=== PATIENT | male | born 1940 | race Caucasian/White ===

== ENCOUNTER 2017-03-10 15:02 | Inpatient (IN) | payer OTHER ==
[~2017-03-10] VITALS: Ht 172.7 cm; Wt 53.2 kg
--- NOTE | 2017-03-10 15:12 | PD ---
HPI Chief Complaint: Lott act Time Seen by Provider: 15:09 Travel History International Travel<30 days: No Contact w/Intl Traveler<30days: No Traveled to known affect area: No History of Present Illness HPI 76 year old male presents under Lott act initiated by [facility]'s office. According to his paperwork, "Cheko has been off of his medication for a few days and cannot see a doctor until Thursday. Cheko has schizophrenia and was starting a verbal argument with the client services director today and was trying to break furniture in the house because he thought people were after him. Cheko is a threat to himself or others in the house if he is not on this medication." History is limited from the patient secondary to him being a poor historian as well as mostly incomprehensible speech. He does make mention [facility] [place] He also seems to have a paranoia of women. No other history is available currently. PFSH Past Medical History Narrative Medical History of schizophrenia per Lott act, other past medical history is unobtainable. Schizophrenia: Yes Social History Alcohol Use: No Tobacco Use: No (unable to obtain) Allergies-Medications (Allergen,Severity, Reaction): Coded Allergies: No Known Allergies (Unverified , 03/10/17) Reported Meds & Prescriptions Reported Meds & Active Scripts Active Reported Benztropine (Benztropine Mesylate) 0.5 Mg Tab 1 Mg PO DAILYAC Risperdal (Risperidone) 4 Mg Tab 4 Mg PO HS Risperdal (Risperidone) 2 Mg Tab 2 Mg PO DAILYAC Review of Systems ROS Limitations: Altered Mental Status, Poor Historian Except as stated in HPI: all other systems reviewed are Neg Physical Exam Exam Limitations: Poor Historian Narrative GENERAL: This is an elderly appearing male who is in no acute distress. He is responding to most commands appropriately. He is a very poor historian. SKIN: Warm and dry. HEAD: Atraumatic. Normocephalic. EYES: Pupils equal and round. No scleral icterus. No injection or drainage. ENT: No nasal bleeding or discharge. Mucous membranes pink and moist. NECK: Trachea midline. No JVD. CARDIOVASCULAR: Regular rate and rhythm. No murmur appreciated. RESPIRATORY: No accessory muscle use. Clear to auscultation. Breath sounds equal bilaterally. GASTROINTESTINAL: Abdomen soft, non-tender, nondistended. Hepatic and splenic margins not palpable. MUSCULOSKELETAL: No obvious deformities. No edema. Normal steady gait. NEUROLOGICAL: Awake and alert. No obvious cranial nerve deficits. Motor grossly within normal limits. Partially incomprehensible speech. PSYCHIATRIC: Appropriate mood. Insight and judgment appear limited. Data Data Last Documented VS Vital Signs Date Time Temp Pulse Resp B/P Pulse Ox O2 Delivery O2 Flow Rate FiO2 03/10/17 15:51 18 03/10/17 15:45 98.7 98 126/76 97 Room Air Orders Complete Blood Count With Diff (03/10/17 15:22) Comprehensive Metabolic Panel (03/10/17 15:22) Urinalysis - C+S If Indicated (03/10/17 15:22) Psych Screen (03/10/17 15:22) Drug Screen, Random Urine (03/10/17 15:22) Alcohol (Ethanol) (03/10/17 15:22) Benztropine (Cogentin) (03/10/17 15:45) Risperidone (Risperdal) (03/10/17 15:45) Labs Laboratory Tests Test 03/10/17 15:30 White Blood Count 12.7 TH/MM3 Red Blood Count 5.06 MIL/MM3 Hemoglobin 15.2 GM/DL Hematocrit 44.3 % Mean Corpuscular Volume 87.6 FL Mean Corpuscular Hemoglobin 30.0 PG Mean Corpuscular Hemoglobin 34.2 % Concent Red Cell Distribution Width 13.3 % Platelet Count 180 TH/MM3 Mean Platelet Volume 8.3 FL Neutrophils (%) (Auto) 88.4 % Lymphocytes (%) (Auto) 5.3 % Monocytes (%) (Auto) 4.4 % Eosinophils (%) (Auto) 0.5 % Basophils (%) (Auto) 1.4 % Neutrophils # (Auto) 11.2 TH/MM3 Lymphocytes # (Auto) 0.7 TH/MM3 Monocytes # (Auto) 0.6 TH/MM3 Eosinophils # (Auto) 0.1 TH/MM3 Basophils # (Auto) 0.2 TH/MM3 CBC Comment AUTO DIFF Differential Comment AUTO DIFF CONFIRMED Platelet Estimate NORMAL Platelet Morphology Comment NORMAL Red Cell Morphology Comment NORMAL Urine Color YELLOW Urine Turbidity CLEAR Urine pH 5.5 Urine Specific [place] 1.025 Urine Protein 30 mg/dL Urine Glucose (UA) NEG mg/dL Urine Ketones NEG mg/dL Urine Occult Blood NEG Urine Nitrite NEG Urine Bilirubin NEG Urine Urobilinogen 2.0 MG/DL Urine Leukocyte Esterase NEG Urine RBC 2 /hpf Urine WBC 2 /hpf Urine Squamous Epithelial <1 /hpf Cells Urine Mucus FEW /lpf Microscopic Urinalysis Comment CULT NOT INDICATED Sodium Level 142 MEQ/L Potassium Level 4.4 MEQ/L Chloride Level 107 MEQ/L Carbon Dioxide Level 27.8 MEQ/L Anion Gap 7 MEQ/L Blood Urea Nitrogen 33 MG/DL Creatinine 1.34 MG/DL Estimat Glomerular Filtration 52 ML/MIN Rate Random Glucose 98 MG/DL Calcium Level 9.4 MG/DL Total Bilirubin 1.0 MG/DL Aspartate Amino Transf 17 U/L (AST/SGOT) Alanine Aminotransferase 15 U/L (ALT/SGPT) Alkaline Phosphatase 61 U/L Total Protein 7.4 GM/DL Albumin 4.3 GM/DL Urine Opiates Screen NEG Urine Barbiturates Screen NEG Urine Amphetamines Screen NEG Urine Benzodiazepines Screen POS Urine Cocaine Screen NEG Urine Cannabinoids Screen NEG Ethyl Alcohol Level LESS THAN 3 MG/DL MDM Medical Decision Making Medical Screen Exam Complete: Yes Emergency Medical Condition: Yes Medical Record Reviewed: Yes Differential Diagnosis Schizophrenia, medication noncompliance, dementia with behavioral disturbance, electrolyte abnormality, closed head injury, acute psychosis Narrative Course This is a 76-year-old male reportedly with a history of schizophrenia who has been noncompliant with his medications over the past several days and today he was verbally and physically aggressive and therefore he was placed under Lott act. Mental health screening discussed with the patient. Psychiatric screen ordered. The charge this was able to get in touch with Bob Valerio and apparently he is prescribed Risperdal 2 mg in the morning, 4 mg in the evening, as well as benztropine 1 mg in the morning. Therefore his morning dose of benztropine and Risperdal have been ordered. The patient is medically cleared for psychiatric disposition. Diagnosis Primary Impression: Medical clearance for psychiatric admission Leonard Esquivel Mar 10, 2017 15:12
[2017-03-10 15:45] VITALS: BP 126/76; PULSE 98; RESP 18; TEMP 98.7; O2SAT 97
[2017-03-10] MEDS ORDERED: risperiDONE 1 MG TAB PO ONE ×2 (15:45→22:45)
[2017-03-10] MEDS ORDERED: BENZTROPINE MESYLATE 1 MG TAB PO ONE (15:45)
[2017-03-10 15:49] LABS: AUTOMATED NEUTROPHIL # 11.2 TH/MM3 (1.8-7.7); BASOPHIL # 0.2 TH/MM3 (0-0.2); BASOPHIL % 1.4 % (0.0-2.0); EOSINOPHIL # 0.1 TH/MM3 (0-0.4); EOSINOPHIL % 0.5 % (0.0-4.0); HEMATOCRIT 44.3 % (39.0-51.0); LYMPH % 5.3 % (9.0-44.0); LYMPHOCYTE # 0.7 TH/MM3 (1.0-4.8); MEAN CELL VOLUME 87.6 FL (80.0-100.0); MEAN CORPUSCULAR HGB CONC 34.2 % (32.0-36.0); MONO % 4.4 % (0.0-8.0); NEUT % 88.4 % (16.0-70.0); PLATELET COUNT 180 TH/MM3 (150-450); RED BLOOD COUNT 5.06 MIL/MM3 (4.50-5.90); RED CELL DISTRIBUTION WIDTH 13.3 % (11.6-17.2); WHITE BLOOD COUNT 12.7 TH/MM3 (4.0-11.0)
[2017-03-10 15:51] LABS: HEMO FLAGS AUTO DIFF
[2017-03-10 15:55] LABS: BLOOD, URINE NEG (NEG); COMMENT (UR) CULT NOT INDICATED; CULTURE IF INDICATED CULT NOT INDICATED; GLUCOSE,URINE NEG (NEG); KETONE, URINE NEG (NEG); MUCUS URINE FEW /lpf (OCC); NITRITE,URINE NEG (NEG); PH, URINE 5.5 (5.0-8.5); SQUAMOUS EPITHELIAL CELL URINE <1 /hpf (0-5); URINE COLOR YELLOW (YELLW/STRAW)
[2017-03-10 16:00] LABS: AMPHETAMINE, URINE NEG (NEG); BARBITURATES, URINE NEG (NEG); COCAINE, URINE NEG (NEG)
[2017-03-10] MEDS ORDERED: RISP2TAB37 PO (16:01)
[2017-03-10] MEDS ORDERED: RISP4TAB41 PO (16:01)
[2017-03-10] MEDS ORDERED: BENZ0.5T PO (16:01)
[2017-03-10 16:08] LABS: ALT (GPT) 15 U/L (12-78); ANION GAP 7 MEQ/L (5-15); AST (GOT) 17 U/L (15-37); BICARBONATE 27.8 MEQ/L (21.0-32.0); BLOOD UREA NITROGEN 33 MG/DL (7-18); CHLORIDE 107 MEQ/L (98-107); GLOMERULAR FILTRATION RATE 52 ML/MIN (>89); POTASSIUM 4.4 MEQ/L (3.5-5.1); SODIUM (NA) 142 MEQ/L (136-145)
[2017-03-10 16:10] LABS: ALKALINE PHOSPHATASE 61 U/L (45-117)
[2017-03-10 16:27] LABS: PLATELET ESTIMATE SMEAR NORMAL (NORMAL); PLATELET MORPHOLOGY NORMAL (NORMAL); SCAN/DIFF AUTO DIFF CONFIRMED
[2017-03-10 18:00] VITALS: BP 122/69; PULSE 115; RESP 18; O2SAT 96
[2017-03-10] MEDS ORDERED: LORazepam 2 MG/ML VIAL IM ONE (18:15)
[2017-03-10 18:48] VITALS: BP 119/75; PULSE 120; RESP 18; TEMP 98.9; O2SAT 96
[2017-03-10 22:12] VITALS: BP 142/74; PULSE 95; RESP 18; TEMP 95.7; O2SAT 94
[2017-03-10] MEDS ORDERED: BENZTROPINE MESYLATE 2 MG TAB PO ONE (22:45)
[2017-03-11 02:04] VITALS: RESP 16
[2017-03-11 06:09] VITALS: BP 147/80; PULSE 100; RESP 16; TEMP 98.2; O2SAT 93
--- NOTE | 2017-03-11 10:12 | PD ---
History of Present Illness Chief Complaint: Psychiatric Symptoms Time Seen by Provider: 10:05 Travel History International Travel<30 Days: No Contact w/Intl Traveler<30days: No Known affected area: No Legal Status Legal Status: Lott Act Lott Act Signed By: Baljinder Lott Act Comment: 2016 @ 1341 History of Present Illness: History of Present Illness HPI 76 year old male presents under Lott act initiated by [facility]'s office. According to his paperwork, "Cheko has been off of his medication for a few days and cannot see a doctor until Thursday. Cheko has schizophrenia and was starting a verbal argument with the sash sticker today and was trying to break furniture in the house because he thought people were after him. Cheko is a threat to himself or others in the house if he is not on this medication." Patient seen. Record reviewed. Telephone call to sash sticker Sheldon Terrazas at [phone]. States he has been medication compliant until one week ago when he ran out of the Risperdal. He began to respond to voices then yesterday he became violent.He will take the patient back once he is stabilized as this is unusual behavior for him. He has been living at this [facility]p x 2 years. Mr. Ventura is awake, alert and oriented male with long hobson martinez. His speech is soft tone and illogical. he talks about Kadeem Hood, the bible, being in the [place] as well as of being in the [facility] x 3 years. . It is difficult to interrupt him and difficult to obtain clinical information. States it is" 2016". He is not oriented to situation. he appears internally preoccupied and is suspicious. He has been in behavioral control here in [place]. PFSH Past Medical History Medical History: Unable to Obtain Diminished Hearing: Yes ([facility]) Schizophrenia: Yes Tetanus Vaccination: Unknown Influenza Vaccination: No ?: Not Past Surgical History Surgical History: Unable to Obtain Psychiatric History Psychiatric History Hx Psychiatric Treatment: SCHIZOPHRENIA History of Inpatient Treatment: Yes ([facility]ible [facility]. ) Guns or firearms in home: No Social History Hx Alcohol Use: No Hx Tobacco Use: No (unable to obtain) Hx Substance Use: No Hx of Substance Use Treatment: No Family Psychiatric History Unable to obtain Allergies-Medications (Allergen,Severity, Reaction): Coded Allergies: No Known Allergies (Unverified , 03/10/17) Reported Meds & Prescriptions Reported Meds & Active Scripts Active Reported Benztropine (Benztropine Mesylate) 0.5 Mg Tab 1 Mg PO DAILYAC Risperdal (Risperidone) 4 Mg Tab 4 Mg PO HS Risperdal (Risperidone) 2 Mg Tab 2 Mg PO DAILYAC Review of Systems ROS Limitations: Clinical Condition, Poor Historian Exam Alert: Yes [place]: Person (ox4) Mood: Calm Affect: Other (variable) Speech: Illogical Eye Contact: Indirect Memory Intact: Comment (unable to tetst) Hallucinations: Auditory (appears internally preocupied.) Delusions: Yes Delusion Type: Other (suspicious) Suicidal: Ideation (negative ) Homicidal: Ideation (negative) Insight/Judgement Non existent/ poor MDM Medical Decision Making Medical Record Reviewed: Yes Assessment/Plan 76 year old male with hx of schizophrenia who present to Ed under a BA after he allegedly became violent at his f usp. The BA reports that he has been out of his medication x 2 1 week with increase in behaviors. At this time the patient meets criteria for inpatient treatment to stabilize symptoms, maintain his safety as well as the safety of others. Orders Complete Blood Count With Diff (03/10/17 15:22) Comprehensive Metabolic Panel (03/10/17 15:22) Urinalysis - C+S If Indicated (03/10/17 15:22) Psych Screen (03/10/17 15:22) Drug Screen, Random Urine (03/10/17 15:22) Alcohol (Ethanol) (03/10/17 15:22) Benztropine (Cogentin) (03/10/17 15:45) Risperidone (Risperdal) (03/10/17 15:45) Lorazepam Inj (Ativan Inj) (03/10/17 18:15) Risperidone (Risperdal) (03/10/17 22:45) Benztropine (Cogentin) (03/10/17 22:45) Diet Regular Basic (03/11/17 Breakfast) Results Vital Signs Date Time Temp Pulse Resp B/P Pulse Ox O2 Delivery O2 Flow Rate FiO2 03/11/17 08:54 100 16 03/11/17 06:09 98.2 100 16 147/80 93 Room Air 03/11/17 02:04 16 Room Air 03/10/17 22:12 95.7 95 18 142/74 94 Room Air 03/10/17 18:48 98.9 120 18 119/75 96 Room Air 03/10/17 18:00 115 18 122/69 96 Room Air 03/10/17 15:51 18 03/10/17 15:45 98.7 98 18 126/76 97 Room Air Laboratory Tests Test 03/10/17 15:30 White Blood Count 12.7 Red Blood Count 5.06 Hemoglobin 15.2 Hematocrit 44.3 Mean Corpuscular Volume 87.6 Mean Corpuscular Hemoglobin 30.0 Mean Corpuscular Hemoglobin 34.2 Concent Red Cell Distribution Width 13.3 Platelet Count 180 Mean Platelet Volume 8.3 Neutrophils (%) (Auto) 88.4 Lymphocytes (%) (Auto) 5.3 Monocytes (%) (Auto) 4.4 Eosinophils (%) (Auto) 0.5 Basophils (%) (Auto) 1.4 Neutrophils # (Auto) 11.2 Lymphocytes # (Auto) 0.7 Monocytes # (Auto) 0.6 Eosinophils # (Auto) 0.1 Basophils # (Auto) 0.2 CBC Comment AUTO DIFF Differential Comment AUTO DIFF CONFIRMED Platelet Estimate NORMAL Platelet Morphology Comment NORMAL Red Cell Morphology Comment NORMAL Urine Color YELLOW Urine Turbidity CLEAR Urine pH 5.5 Urine Specific [place] 1.025 Urine Protein 30 Urine Glucose (UA) NEG Urine Ketones NEG Urine Occult Blood NEG Urine Nitrite NEG Urine Bilirubin NEG Urine Urobilinogen 2.0 Urine Leukocyte Esterase NEG Urine RBC 2 Urine WBC 2 Urine Squamous Epithelial <1 Cells Urine Mucus FEW Microscopic Urinalysis Comment CULT NOT INDICATED Sodium Level 142 Potassium Level 4.4 Chloride Level 107 Carbon Dioxide Level 27.8 Anion Gap 7 Blood Urea Nitrogen 33 Creatinine 1.34 Estimat Glomerular Filtration 52 Rate Random Glucose 98 Calcium Level 9.4 Total Bilirubin 1.0 Aspartate Amino Transf 17 (AST/SGOT) Alanine Aminotransferase 15 (ALT/SGPT) Alkaline Phosphatase 61 Total Protein 7.4 Albumin 4.3 Urine Opiates Screen NEG Urine Barbiturates Screen NEG Urine Amphetamines Screen NEG Urine Benzodiazepines Screen POS Urine Cocaine Screen NEG Urine Cannabinoids Screen NEG Ethyl Alcohol Level LESS THAN 3 Diagnosis Primary Impression: Medical clearance for psychiatric admission Additional Impression: Schizophrenia Admitting Information Admitting Physician Requests: Admit (Dr. 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
[2017-03-11] MEDS ORDERED: ACETAMINOPHEN 325 MG TAB PO PRN (10:30)
[2017-03-11] MEDS ORDERED: ALUMINUM/MAGNESIUM/SIMETH 30 ML CUP PO PRN (10:30)
[2017-03-11] MEDS ORDERED: MAGNESIUM HYDROXIDE SUSP 30 ML CUP PO PRN (10:30)
[2017-03-11 11:00] VITALS: BP 146/86; PULSE 88; RESP 18; TEMP 98.4; O2SAT 98
[2017-03-11] MEDS: BENZTROPINE MESYLATE 1 MG TAB PO SCH (13:00)
[2017-03-11] MEDS: risperiDONE 1 MG TAB PO SCH ×2 (13:15→22:42)
[2017-03-11 18:00] VITALS: BP 135/63; PULSE 81; RESP 17; TEMP 98.1; O2SAT 96
[2017-03-12 06:17] VITALS: BP 117/69; PULSE 99; RESP 19; TEMP 98.7
[2017-03-12] MEDS: risperiDONE 1 MG TAB PO SCH ×2 (08:11→20:56)
[2017-03-12] MEDS: BENZTROPINE MESYLATE 1 MG TAB PO SCH (08:11)
[2017-03-12] MEDS ORDERED: MAGNESIUM HYDROXIDE SUSP 30 ML CUP PO PRN (08:45)
[2017-03-12] MEDS ORDERED: ALUMINUM/MAGNESIUM/SIMETH 30 ML CUP PO PRN (08:45)
[2017-03-12] MEDS ORDERED: hydrOXYzine HCL 50 MG TAB PO PRN (08:45)
[2017-03-12] MEDS ORDERED: ACETAMINOPHEN 325 MG TAB PO PRN (08:45)
[2017-03-12] MEDS: NICOTINE 21 MG/24 HR PATCH T-DERMAL SCH (09:00)
--- NOTE | 2017-03-12 09:31 | HHI.HP ---
Provisional Diagnosis Admission Date Mar 11, 2017 at 10:42 [place] I. 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 Express and informed consent means consent voluntarily given in writing, by a competent person, after sufficient explanation and disclosure of the subject matter involved to enable the person to make a knowing and willful decision without any element of force, fraud, deceit, duress, or other form of constraint or coercion. This person is 18 years of age or older, is not now known to be incompetent to consent to treatment with a guardian advocate, and does not have a health care surrogate or proxy currently making medical treatment decisions. I have found this person to be one of the following: [] Competent to provide express and informed consent, as defined above, for voluntary admission to this facility and is competent to provide express and informed consent for treatment. He/she has the consistent capacity to make well reasoned, willful, and knowing decisions concerning his or her medical or mental health treatment. The person fully and consistently understands the purpose of the admission for examination/placement and is fully capable of personally exercising all rights assured under [place]xxx] Incompetent to provide express and informed consent to voluntary admission , and this is incompetent to provide express and informed consent to treatment. The person must be transferred to involuntary status and a petition for a guardian advocate filed with the Circuit Court. [] Refusing to provide express and informed consent to voluntary admission but is competent to provide express and informed consent for treatment. The person must be discharged or transferred to involuntary status. Form shall be completed within 24 hours of a person's arrival at the receiving facility and filed in the clinical record of each person: 1. Admitted on a voluntary basis 2. Permitted to provide express and informed consent to his/her own treatment 3. Allowed to transfer from involuntary to voluntary status 4. Prior to permitting a person to consent to his or her own treatment after having been previously found incompetent to consent to treatment. History of Present Illness Capacity: Lacks Capacity HPI Patient is a 76-year-old white male who comes here it appears from his half-way under Lott act by the [facility]'s office dated at 1: 47 PM that document reviewed and agreed with essentially states that Cheko has been off his medication for a few days and can not see a doctor until Thursday. Cheko has schizophrenia and was starting a verbal argument with the commercial loan analyst today and was trying to break furniture in the house because he thought people were after him. Cheko is a threat to himself or others in the house if he is not on his medication patient seen screen in the ED urine toxicology positive for benzodiazepines blood alcohol level negative. At the present time patient sitting quietly in his room on [address] medical student Liborio and Counselor Tiffany present throughout session patient is alert though diffusely disoriented to place time and situation. Speech pattern markedly disorganized almost the point of word salad. Though he is pleasant about this. There is some references towards March and the federal government. Per the psych screening notes it appears she is in the long history mental illness has been hospitalized at the [facility] past. It appears there is no significant family members available the need to further research neck. It appears as no significant alcohol or drug history in the past is essentially unknown at this time also. In any event per the med reconciliation patient is on Cogentin and Respinol. We will restart those medications. That this summer feel patient does not have capacity for admission a medications thus I'll do first opinion petition supporting Lott act and ask for healthcare surrogate and guardian advocate. Also the hospitalist assess this gentleman Review of Systems ROS Limitations: Altered Mental Status (unable to ascertain due to patient's cognitive deficits) Past Psych History Psychological trauma history Been able to ascertain due to cognitive deficits Violence risk - others (6 mos) Patient was violent in his half-way these trying furniture Violence risk - self (6 mos) Unable to ascertain due to cognitive deficits Substance Abuse History Drugs/Alcohol past 12 months Unknown at this time Past Family Social History Coded Allergies: No Known Allergies (Unverified , 03/10/17) Past Medical History Unknown at this time Reported Medications Benztropine 0.5 Mg Tab1 Mg PO DAILYAC #30 TAB Ref 0 03/10/17 Risperidone (Risperdal)4 Mg Tab4 Mg PO HS #30 TAB Ref 0 03/10/17 Risperidone (Risperdal)2 Mg Tab2 Mg PO DAILYAC #30 TAB Ref 0 03/10/17 Current Medications Medications (Trade) Dose Ordered Sig/Sherita Route Start Time Stop Time Status Last Admin (Cogentin) 1 mg DAILYAC PO 03/11/17 13:00 03/12/17 08:11 (risperDAL) 2 mg DAILYAC PO 03/11/17 13:15 03/12/17 08:11 (risperDAL) 4 mg HS PO 03/11/17 21:00 03/11/17 22:42 (Tylenol) 650 mg Q4H PRN PO 03/11/17 10:30 (Milk Of Magnesia Liq) 30 ml DAILY PRN PO 03/11/17 10:30 (Mag-Al Plus Susp Liq) 30 ml Q6H PRN PO 03/11/17 10:30 (Habitrol 21 Mg Patch.24 Hr) 1 patch DAILY T-DERMAL 03/12/17 09:00 (Benadryl) 50 mg HS PRN PO 03/12/17 08:45 UNV (Tylenol) 650 mg Q4H PRN PO 03/12/17 08:45 UNV (Milk Of Magnesia Liq) 30 ml DAILY PRN PO 03/12/17 08:45 (Mag-Al Plus Susp Liq) 30 ml Q6H PRN PO 03/12/17 08:45 UNV (Atarax) 50 mg Q6H PRN PO 03/12/17 08:45 UNV Family History Unknown at this time due to cognitive deficits Social History Patient lives in half-way long history mental illness it appears she may benefit in the past Patient's Strengths (min. 2) Patient able access healthcare is in no acute distress Physical Exam Patient seen screened in ED exam reveals reviewed and agreed with patient sitting quietly in his room on 2600 and no acute distress, patient is in no respiratory distress, moves all 4 extremities without difficulty no abnormal motor movements noted Vital Signs Vital Signs Date Time Temp Pulse Resp B/P Pulse Ox O2 Delivery O2 Flow Rate FiO2 03/12/17 06:17 98.7 99 19 117/69 03/11/17 18:00 96 03/11/17 06:09 Room Air I/O 03/11/17 03/11/17 03/12/17 08:00 16:00 00:00 Intake Total 960 ml Balance 960 ml Mental Status Examination Alert diffusely confused white male appears stated age with attempts at being cooperative though markedly disorganized Appearance Somewhat disheveled Speech: Hesitant, Circumstantial, Tangential, Other (markedly disorganized) Orientation: Person Memory: Impaired (describe) Thought Process: Loose Association Thought Content: Other (markedly disorganized) Language Very poor Fund of Knowledge Very poor Hallucination Type: Auditory (patient states voices in his head) Attention and Concentration: Other (poor) Suicidal Ideation: No Previous Suicide Attempts: No Homicidal Ideation: No Previous Homicide Attempts: No Insight: Poor Judgment: Poor Affect: Other (good range intensity) Mood: Euthymic, Irritable Motor Activity: Normal gait (PT to assess) Assessment & Plan Problem List: (1) Schizophrenia ICD Code: F20.9 (2) Cognitive deficits ICD Code: R41.89 Assessment & Plan Estimated LOS: 5-7 days patient remained psychotic and markedly confused, will restart patient's medication. Though we feel he does not have capacity I'll do first opinion, also ask for healthcare surrogate and guardian advocate. We do need contact patient half-way to give further information and see above the possibility from returning there Discharge Planning To be determined Request HC Surrog/Guard Advoc?: Yes Problem Qualifiers (1) Schizophrenia: Qualified Code: F20.1 - Disorganized schizophrenia Cheko Doss MD Mar 12, 2017 09:31
[2017-03-12] MEDS ORDERED: LORazepam 2 MG/ML VIAL IM PRN (10:45)
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
[2017-03-12 16:11] LABS: AUTOMATED NEUTROPHIL # 5.5 TH/MM3 (1.8-7.7); BASOPHIL % 0.6 % (0.0-2.0); EOSINOPHIL # 0.2 TH/MM3 (0-0.4); EOSINOPHIL % 2.4 % (0.0-4.0); HEMATOCRIT 40.9 % (39.0-51.0); HEMO FLAGS DIFF FINAL; LYMPH % 17.1 % (9.0-44.0); LYMPHOCYTE # 1.3 TH/MM3 (1.0-4.8); MEAN CELL VOLUME 87.3 FL (80.0-100.0); MEAN CORPUSCULAR HEMOGLOBIN 29.6 PG (27.0-34.0); MEAN CORPUSCULAR HGB CONC 33.9 % (32.0-36.0); MONO % 6.7 % (0.0-8.0); NEUT % 73.2 % (16.0-70.0); PLATELET COUNT 162 TH/MM3 (150-450); RED BLOOD COUNT 4.69 MIL/MM3 (4.50-5.90); RED CELL DISTRIBUTION WIDTH 13.2 % (11.6-17.2); WHITE BLOOD COUNT 7.5 TH/MM3 (4.0-11.0)
[2017-03-12] MEDS: LORazepam 1 MG TAB PO PRN (16:33)
[2017-03-12 16:40] LABS: ANION GAP 6 MEQ/L (5-15); BICARBONATE 30.1 MEQ/L (21.0-32.0); BLOOD UREA NITROGEN 34 MG/DL (7-18); CHLORIDE 107 MEQ/L (98-107); GLOMERULAR FILTRATION RATE 81 ML/MIN (>89); POTASSIUM 4.2 MEQ/L (3.5-5.1); SODIUM (NA) 143 MEQ/L (136-145)
--- NOTE | 2017-03-12 16:52 | PD.CONS ---
HPI Service [facility] Hospitalists Consult Requested By Psychiatric service Reason for Consult Medical management [facility] Diagnoses: History of Present Illness Written by Roxann White PA-C acting as scribe for Dr. Sierra on 03/12/17 at 16:36. This is a 76-year-old male with a past medical history of schizophrenia who is unable to provide any history and therefore it is obtained from review of the computerized medical record who presented to the ED under Lott act for worsening of his schizophrenia with increased paranoia as a result of being off of his medications. Patient is admitted to inpatient psychiatric unit and hospitalist services were consulted for medical management. Patient seen and examined today. Patient with markedly disorganized thought process and tangential speech. Patients heart rate elevated 99. Laboratory studies significant for elevated BUN of 33, elevated creatinine 1.34 and decreased GFR 52 as well as elevated white count 12.7. UA remarkable for proteinuria only. Urine tox screen positive for benzodiazepines. Review of Systems Unable to obtain due to patient's cognitive impairment Past Family Social History Allergies: Coded Allergies: No Known Allergies (Unverified , 03/10/17) Past Medical History Schizophrenia Unable to obtain any other past medical history due to patient's cognitive impairment Past Surgical History Unable to obtain due to patient's cognitive impairment Reported Medications Benztropine (Benztropine Mesylate) 0.5 Mg Tab 1 Mg PO DAILYAC Risperdal (Risperidone) 4 Mg Tab 4 Mg PO HS Risperdal (Risperidone) 2 Mg Tab 2 Mg PO DAILYAC Active Ordered Medications Current Medications Medications (Trade) Dose Ordered Sig/Sherita Route Start Time Stop Time Status Last Admin (Cogentin) 1 mg DAILYAC PO 03/11/17 13:00 03/12/17 08:11 (risperDAL) 2 mg DAILYAC PO 03/11/17 13:15 03/12/17 08:11 (risperDAL) 4 mg HS PO 03/11/17 21:00 03/11/17 22:42 (Habitrol 21 Mg Patch.24 Hr) 1 patch DAILY T-DERMAL 03/12/17 09:00 (Benadryl) 50 mg HS PRN PO 03/12/17 08:45 (Tylenol) 650 mg Q4H PRN PO 03/12/17 08:45 (Milk Of Magnesia Liq) 30 ml DAILY PRN PO 03/12/17 08:45 (Mag-Al Plus Susp Liq) 30 ml Q6H PRN PO 03/12/17 08:45 (Atarax) 50 mg Q6H PRN PO 03/12/17 08:45 (Ativan) 1 mg Q6H PRN PO 03/12/17 10:45 03/12/17 16:33 (Ativan Inj) 1 mg Q6H PRN IM 03/12/17 10:45 03/12/17 11:16 Family History Unable to obtain due to patient's cognitive impairment Social History Unable to obtain due to patient's cognitive impairment Physical Exam Vital Signs Vital Signs Date Time Temp Pulse Resp B/P Pulse Ox O2 Delivery O2 Flow Rate FiO2 03/12/17 06:17 98.7 99 19 117/69 03/11/17 18:00 98.1 81 17 135/63 96 Physical Exam GENERAL: This is a thin, elderly male, in no apparent distress. Confused. Disheveled appearance. Smells of urine. SKIN: No rashes, ecchymoses or lesions. Cool and dry. HEAD: Atraumatic. Normocephalic. EYES: Extraocular motions intact. No scleral icterus. No injection or drainage. ENT: Nose without bleeding, purulent drainage or septal hematoma. Throat without erythema, tonsillar hypertrophy or exudate. Uvula midline. Airway patent. NECK: Trachea midline. No lymphadenopathy. Supple, nontender, no meningeal signs. CARDIOVASCULAR: Tachycardic without murmurs, gallops, or rubs. RESPIRATORY: Clear to auscultation. Breath sounds equal bilaterally. No wheezes , rales, or rhonchi. GASTROINTESTINAL: Abdomen soft, non-tender, nondistended. No hepato-splenomegaly , or palpable masses. No guarding. MUSCULOSKELETAL: Extremities without clubbing, cyanosis, or edema. No joint tenderness, effusion, or edema noted. No calf tenderness. NEUROLOGICAL: Awake and alert. Able to move all extremities. PSYCHIATRIC: Markedly disorganized thought process. Tangential speech. Laboratory Laboratory Tests Test 03/12/17 15:21 White Blood Count 7.5 Red Blood Count 4.69 Hemoglobin 13.9 Hematocrit 40.9 Mean Corpuscular Volume 87.3 Mean Corpuscular Hemoglobin 29.6 Mean Corpuscular Hemoglobin 33.9 Concent Red Cell Distribution Width 13.2 Platelet Count 162 Mean Platelet Volume 8.5 Neutrophils (%) (Auto) 73.2 Lymphocytes (%) (Auto) 17.1 Monocytes (%) (Auto) 6.7 Eosinophils (%) (Auto) 2.4 Basophils (%) (Auto) 0.6 Neutrophils # (Auto) 5.5 Lymphocytes # (Auto) 1.3 Monocytes # (Auto) 0.5 Eosinophils # (Auto) 0.2 Basophils # (Auto) 0.0 CBC Comment DIFF FINAL Differential Comment Result Diagram: 03/12/17 1521 03/10/17 1530 Assessment and Plan Assessment and Plan 76-year-old male with a past medical history of schizophrenia who is unable to provide any history and therefore it is obtained from review of the computerized medical record who presented to the ED under Lott act for worsening of his schizophrenia with increased paranoia as a result of being off of his medications. Patient is admitted to inpatient psychiatric unit and hospitalist services were consulted for medical management. Schizophrenia - Management per psychiatric team Tachycardia - Suspect related to volume depletion/poor by mouth intake as well as increased agitation - Encourage fluids - obtain TSH level - monitor Leukocytosis - Suspect stress-related - Resolved Suspected NUVIA - Unable to obtain history of previous chronic kidney disease - Creatinine 1.34 with unknown baseline - Suspect NUVIA due to iron depletion/poor by mouth intake - encourage fluids - repeat labs pending - Avoid nephrotoxic agents Thank you for this consultation. Will continue to follow this patient with you. Discussed Condition With This note was transcribed by scribe [Roxann White PA-C]. I, Dr. Cheo Sierra personally performed the history, physical exam, and medical decision making; and confirmed the accuracy of the information in the transcribed note. Authenticated by Dr. Cheo Sierra on 03/16/17 at 12:00. Roxann White Mar 12, 2017 16:51 Cheo Sierra MD Mar 16, 2017 12:00
[2017-03-12 17:05] LABS: HDL CHOLESTEROL 40.3 MG/DL (40.0-60.0); LDL CHOLESTEROL 52 MG/DL (0-99)
[2017-03-12 19:52] LABS: HEMOGLOBIN A1b 1.6 %; HEMOGLOBIN Ao 85.7 %; HEMOGLOBIN LA1C 1.9 %; HEMOGLOBIN P3 3.8 %
[2017-03-12] MEDS: diphenhydrAMINE HCL 50 MG CAP PO PRN (20:56)
[2017-03-13] MEDS: LORazepam 1 MG TAB PO PRN ×2 (01:37→12:06)
[2017-03-13 06:05] VITALS: BP 116/59; PULSE 72; RESP 17; TEMP 97.7; O2SAT 96
[2017-03-13] MEDS: NICOTINE 21 MG/24 HR PATCH T-DERMAL SCH (09:00)
[2017-03-13] MEDS: BENZTROPINE MESYLATE 1 MG TAB PO SCH (09:04)
[2017-03-13] MEDS: risperiDONE 1 MG TAB PO SCH ×2 (09:04→20:03)
[2017-03-13] MEDS: CHOLECALCIFEROL (VIT D3) 1000 UNIT TAB PO SCH (09:06)
[2017-03-13 13:05] LABS: BICARBONATE 30.4 MEQ/L (21.0-32.0)
--- NOTE | 2017-03-13 15:17 | HHI.PR ---
Subjective Remarks Follow up on patient with schizophrenia, tachycardia and NUVIA. Patient seen today. Refused examination. 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 Objective Vitals Vital Signs Date Time Temp Pulse Resp B/P Pulse Ox O2 Delivery O2 Flow Rate FiO2 03/13/17 06:05 97.7 72 17 116/59 96 I/O 03/12/17 03/12/17 03/12/17 03/13/17 03/13/17 03/13/17 07:00 15:00 23:00 07:00 15:00 23:00 Intake Total 1080 ml 0 ml 360 ml Balance 1080 ml 0 ml 360 ml Intake Oral 600 ml 0 ml 360 ml Oral Supplement 480 ml # Voids 1 Result Diagram: 03/12/17 1521 03/13/17 1204 Objective Remarks GENERAL: This is a thin elderly man, in no apparent distress. Confused. Disheveled appearance. Tangential speech. Agitated and yelling. Refuses examination. Medications and IVs Current Medications Medications (Trade) Dose Ordered Sig/Sherita Route Start Time Stop Time Status Last Admin (Cogentin) 1 mg DAILYAC PO 03/11/17 13:00 03/13/17 09:04 (risperDAL) 2 mg DAILYAC PO 03/11/17 13:15 03/13/17 09:04 (risperDAL) 4 mg HS PO 03/11/17 21:00 03/12/17 20:56 (Habitrol 21 Mg Patch.24 Hr) 1 patch DAILY T-DERMAL 03/12/17 09:00 (Benadryl) 50 mg HS PRN PO 03/12/17 08:45 03/12/17 20:56 (Tylenol) 650 mg Q4H PRN PO 03/12/17 08:45 (Milk Of Magnesia Liq) 30 ml DAILY PRN PO 03/12/17 08:45 (Mag-Al Plus Susp Liq) 30 ml Q6H PRN PO 03/12/17 08:45 (Atarax) 50 mg Q6H PRN PO 03/12/17 08:45 (Ativan) 1 mg Q6H PRN PO 03/12/17 10:45 03/13/17 12:06 (Ativan Inj) 1 mg Q6H PRN IM 03/12/17 10:45 03/12/17 11:16 (Vitamin D3) 1,000 units DAILY PO 03/13/17 09:00 03/13/17 09:06 A/P Assessment and Plan 76-year-old male with a past medical history of schizophrenia who is unable to provide any history and therefore it is obtained from review of the computerized medical record who presented to the ED under Lott act for worsening of his schizophrenia with increased paranoia as a result of being off of his medications. Patient is admitted to inpatient psychiatric unit and hospitalist services were consulted for medical management. Schizophrenia - Management per psychiatric team Tachycardia - Suspect related to volume depletion/poor by mouth intake as well as increased agitation - resolved - continue to encourage fluids - TSH level WNL Leukocytosis - Suspect stress-related - Resolved Suspected NUVIA - Unable to obtain history of previous chronic kidney disease - Creatinine 1.34 with unknown baseline, improved to 1.01 - Suspect NUVIA due to iron depletion/poor by mouth intake - continue to encourage fluids - Avoid nephrotoxic agents Elevated BUN - suspect related to dehydration - encourage fluids - recommend recheck in 3-4 days Attempted to discuss with patient but unsuccessful due to his agitation. Discussed with Dr. Sierra Patient appears stable from hospitalist standpoint. Will sign off for now. Please reconsult if needed. Roxann White Mar 13, 2017 15:17
--- NOTE | 2017-03-13 15:52 | HHI.PYPN ---
Subjective Remarks Patient seen in his room with nurse Orly, chart review, patient compliant medication. Patient is markedly disorganized speech quite disorganized almost with plantar warts. Though he is no significant behavioral problems. For now continue treatment Review of Systems Except as stated in HPI: all other systems reviewed are Neg Objective Alert: Yes [place]: Person (ox4) Mood: Calm Affect: Other (variable) Memory Intact: Comment (unable to tetst) Hallucinations: Auditory (appears internally preocupied.) Delusions: Yes Delusion Type: Other (suspicious) Suicidal: Ideation (negative ) Homicidal: Ideation (negative) Insight/Judgment Very poor Labs Test 03/13/17 12:04 Sodium Level 142 MEQ/L Potassium Level 4.0 MEQ/L Chloride Level 105 MEQ/L Carbon Dioxide Level 30.4 MEQ/L Anion Gap 7 MEQ/L Blood Urea Nitrogen 36 MG/DL Creatinine 1.01 MG/DL Estimat Glomerular Filtration 72 ML/MIN Rate Random Glucose 67 MG/DL Calcium Level 9.4 MG/DL Vitals/IOs Vital Signs Date Time Temp Pulse Resp B/P Pulse Ox O2 Delivery O2 Flow Rate FiO2 03/13/17 06:05 97.7 72 17 116/59 96 03/11/17 06:09 Room Air Intake and Output 03/12/17 03/12/17 03/12/17 07:59 15:59 23:59 Intake Total 1080 ml Balance 1080 ml Assessment & Plan Problem List: (1) Schizophrenia ICD Code: F20.9 (2) Cognitive deficits ICD Code: R41.89 Assessment & Plan Estimated LOS: days patient continue psychotic, confused. Compliant medications. For now continue treatment Justification for Cont. Inpt. At this time patient will decompensate the placed in a lower level of care Discharge Planning To be determined Request HC Surrog/Guard Advoc?: Yes Problem Qualifiers (1) Schizophrenia: Qualified Code: F20.1 - Disorganized schizophrenia Cheko Doss MD Mar 13, 2017 15:52
[2017-03-13 16:18] VITALS: BP 122/60; PULSE 77; RESP 18; TEMP 97.8; O2SAT 96
[2017-03-14 04:00] VITALS: BP 105/56; PULSE 76; RESP 15; TEMP 96.7; O2SAT 96
[2017-03-14] MEDS: BENZTROPINE MESYLATE 1 MG TAB PO SCH (08:55)
[2017-03-14] MEDS: risperiDONE 1 MG TAB PO SCH ×2 (08:55→20:53)
[2017-03-14] MEDS: CHOLECALCIFEROL (VIT D3) 1000 UNIT TAB PO SCH (08:56)
[2017-03-14] MEDS: NICOTINE 21 MG/24 HR PATCH T-DERMAL SCH (08:57)
--- NOTE | 2017-03-14 16:53 | HHI.PYPN ---
Subjective Remarks Pt seen and discussed with staff. Pt was agitated yesterday but has been calm today. He has been rambling in speech with odd behaviors. He is compliant with medications. No SI/HI Objective Alert: Yes [place]: Person, Place, Date, Situation Mood: Calm Affect: Other (variable) Memory Intact: Comment (unable to tetst) Hallucinations: Auditory (internally preocupied.) Delusions: Yes Delusion Type: Other (suspicious) Suicidal: Ideation (negative ) Homicidal: Ideation (negative) Insight/Judgment poor Vitals/IOs Vital Signs Date Time Temp Pulse Resp B/P Pulse Ox O2 Delivery O2 Flow Rate FiO2 03/14/17 04:00 96.7 76 15 105/56 96 03/11/17 06:09 Room Air Intake and Output 03/13/17 03/13/17 03/14/17 08:00 16:00 00:00 Intake Total 360 ml 120 ml 480 ml Balance 360 ml 120 ml 480 ml Assessment & Plan Problem List: (1) Schizophrenia ICD Code: F20.9 (2) Cognitive deficits ICD Code: R41.89 Assessment & Plan Continue current tx plan. Estimated LOS: days Justification for Cont. Inpt. impairments in reality construction Request HC Surrog/Guard Advoc?: Yes Problem Qualifiers (1) Schizophrenia: Qualified Code: F20.1 - Disorganized schizophrenia Diamond Oliveira MD Mar 14, 2017 16:53
[2017-03-14 18:00] VITALS: BP 122/58; PULSE 90; RESP 18; TEMP 96.8; O2SAT 94
[2017-03-14] MEDS: diphenhydrAMINE HCL 50 MG CAP PO PRN (20:53)
[2017-03-15 05:45] VITALS: BP 104/55; PULSE 70; RESP 18; TEMP 97.3; O2SAT 97
[2017-03-15] MEDS: risperiDONE 1 MG TAB PO SCH ×2 (08:29→20:49)
[2017-03-15] MEDS: CHOLECALCIFEROL (VIT D3) 1000 UNIT TAB PO SCH (08:29)
[2017-03-15] MEDS: BENZTROPINE MESYLATE 1 MG TAB PO SCH (08:30)
[2017-03-15] MEDS: NICOTINE 21 MG/24 HR PATCH T-DERMAL SCH (08:33)
--- NOTE | 2017-03-15 13:51 | HHI.PYPN ---
Subjective Remarks Pt seen and discussed with staff. He remains bizarre stating that he received a delivery today on unit from [place]. He is intrusive and speech is rambling and nonsensical. He is compliant with medication and slept well last night. No SI/HI Objective Alert: Yes [place]: Person, Place, Date, Situation Mood: Calm Affect: Other (variable) Memory Intact: Comment (unable to tetst) Hallucinations: Auditory (internally preocupied.) Delusions: Yes Delusion Type: Other (bizarre) Suicidal: Ideation (negative ) Homicidal: Ideation (negative) Insight/Judgment poor Remarks rambling speech disorganized Vitals/IOs Vital Signs Date Time Temp Pulse Resp B/P Pulse Ox O2 Delivery O2 Flow Rate FiO2 03/15/17 05:45 97.3 70 18 104/55 97 Intake and Output 03/14/17 03/14/17 03/15/17 08:00 16:00 00:00 Intake Total 600 ml 360 ml Balance 600 ml 360 ml Assessment & Plan Problem List: (1) Schizophrenia ICD Code: F20.9 (2) Cognitive deficits ICD Code: R41.89 Assessment & Plan Continue current tx plan Estimated LOS: days Justification for Cont. Inpt. impairments in reality testing and self care Request HC Surrog/Guard Advoc?: Yes Problem Qualifiers (1) Schizophrenia: Qualified Code: F20.1 - Disorganized schizophrenia Diamond Oliveira MD Mar 15, 2017 13:51
[2017-03-15] MEDS: diphenhydrAMINE HCL 50 MG CAP PO PRN (20:49)
[2017-03-16 06:14] VITALS: BP 122/56; PULSE 68; RESP 19; TEMP 99; O2SAT 96
[2017-03-16] MEDS: BENZTROPINE MESYLATE 1 MG TAB PO SCH (08:29)
[2017-03-16] MEDS: risperiDONE 1 MG TAB PO SCH ×2 (08:29→20:52)
[2017-03-16] MEDS: CHOLECALCIFEROL (VIT D3) 1000 UNIT TAB PO SCH (08:29)
[2017-03-16] MEDS: NICOTINE 21 MG/24 HR PATCH T-DERMAL SCH (08:29)
--- NOTE | 2017-03-16 12:00 | PD.TTN ---
Present for Treatment Team Treatment Team Staff: Provider (Dr. Doss), Psych Therapist (NICKIE Tobias), Other Clinician, Ancillary Staff (Rec. Ailin [facility]), Other Patient Problems 1. Discharge planning 2. Medication compliance 3. Knowledge deficit 4. Lack of coping skills Progress Toward Goals Provider Input: Dr. Doss reported he will be seeing this patient this afternoon and inquired regarding patient's discharge plan. Psych Therapist Input: Counselor reported the patient may return to his adult [facility] [place] [facility] when he has been stabilized on his medications. He remains bizarre, calm, and compliant with medications. Ancillary Staff Input: Ailin reported the patient is not attending groups. Documentation Scribe: NICKIE Tobias Date Resolved: Mar 16, 2017 Audrey Soto Mar 16, 2017 12:00
--- NOTE | 2017-03-16 13:26 | HHI.PYPN ---
Subjective Remarks Patient discussed with treatment team, patient seen in his room with narciso. Patient continues to mumble but times appears understandable referred back to the being amenorrheic. He is show no significant behavioral problems, compliant with medications. Now continue treatment Review of Systems Except as stated in HPI: all other systems reviewed are Neg Objective Alert: Yes [place]: Person, Place, Date, Situation Mood: Calm Affect: Other (variable) Memory Intact: Comment (unable to tetst) Hallucinations: Auditory (internally preocupied.) Delusions: Yes Delusion Type: Other (bizarre) Suicidal: Ideation (negative ) Homicidal: Ideation (negative) Insight/Judgment Poor Vitals/IOs Vital Signs Date Time Temp Pulse Resp B/P Pulse Ox O2 Delivery O2 Flow Rate FiO2 03/16/17 06:14 99.0 68 19 122/56 96 Intake and Output 03/15/17 03/15/17 03/16/17 08:00 16:00 00:00 Intake Total 720 ml 360 ml Balance 720 ml 360 ml Assessment & Plan Problem List: (1) Schizophrenia ICD Code: F20.9 (2) Cognitive deficits ICD Code: R41.89 Assessment & Plan Estimated LOS: days patient continues psychotic and paranoid, though softer. Compliant medications. For now continue treatment Justification for Cont. Inpt. At this time patient will decompensate and placed in a lower level of care Discharge Planning To be determined Request HC Surrog/Guard Advoc?: Yes Problem Qualifiers (1) Schizophrenia: Qualified Code: F20.1 - Disorganized schizophrenia Cheko Doss MD Mar 16, 2017 13:26
[2017-03-16] MEDS: diphenhydrAMINE HCL 50 MG CAP PO PRN (20:51)
[2017-03-17 06:40] VITALS: BP 118/55; PULSE 55; RESP 18; TEMP 97.5; O2SAT 96
[2017-03-17] MEDS: CHOLECALCIFEROL (VIT D3) 1000 UNIT TAB PO SCH (09:24)
[2017-03-17] MEDS: BENZTROPINE MESYLATE 1 MG TAB PO SCH (09:24)
[2017-03-17] MEDS: risperiDONE 1 MG TAB PO SCH ×2 (09:24→20:41)
--- NOTE | 2017-03-17 10:49 | HHI.PYPN ---
Subjective Remarks Patient seen in his room with nurse Verónica, chart review, patient compliant medication. Patient still disorganized and isolating, that appears conversations are somewhat more goal oriented is able to tell us about some of his experiences in the [employer]. Shown no other behavioral issues at this time Review of Systems Except as stated in HPI: all other systems reviewed are Neg Objective Alert: Yes [place]: Person, Place, Date, Situation Mood: Calm Affect: Other (variable) Memory Intact: Comment (unable to tetst) Hallucinations: Auditory (internally preocupied.) Delusions: Yes Delusion Type: Other (bizarre) Suicidal: Ideation (negative ) Homicidal: Ideation (negative) Insight/Judgment Very poor Vitals/IOs Vital Signs Date Time Temp Pulse Resp B/P Pulse Ox O2 Delivery O2 Flow Rate FiO2 03/17/17 06:40 97.5 55 18 118/55 96 Intake and Output 03/16/17 03/16/17 03/17/17 08:00 16:00 00:00 Intake Total 360 ml 2400 ml 600 ml Balance 360 ml 2400 ml 600 ml Assessment & Plan Problem List: (1) Schizophrenia ICD Code: F20.9 (2) Cognitive deficits ICD Code: R41.89 Assessment & Plan Estimated LOS: days patient continues somewhat confused and psychotic, though behaviors seem to be softening, for now continue treatment Justification for Cont. Inpt. At this time patient will decompensate and placed in a lower level of care Discharge Planning To be determined Request HC Surrog/Guard Advoc?: Yes Problem Qualifiers (1) Schizophrenia: Qualified Code: F20.1 - Disorganized schizophrenia Cheko Doss MD Mar 17, 2017 10:49
[2017-03-17 15:59] VITALS: BP 116/57; PULSE 68; RESP 18; TEMP 97.8; O2SAT 98
[2017-03-17] MEDS: diphenhydrAMINE HCL 50 MG CAP PO PRN (20:41)
[2017-03-18 08:15] VITALS: BP 123/63; PULSE 62; RESP 18; TEMP 97.5; O2SAT 98
[2017-03-18] MEDS: BENZTROPINE MESYLATE 1 MG TAB PO SCH (08:24)
[2017-03-18] MEDS: risperiDONE 1 MG TAB PO SCH (08:24)
[2017-03-18] MEDS: CHOLECALCIFEROL (VIT D3) 1000 UNIT TAB PO SCH (08:25)
[2017-03-18] MEDS ORDERED: VITA1000 PO (14:31)
[2017-03-18] MEDS ORDERED: RISP1 PO (14:31)
[2017-03-18] MEDS ORDERED: Benztropine PO (14:31)
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
== END 2017-03-18 18:50 | DRG 885 ==
LOC: NEPC 15:02 → NEDA 03-11 10:42 → H250 03-11 11:29
PROVIDERS: ADMIT Psychiatry & Neurology Psychiatry; ATTEND Psychiatry & Neurology Psychiatry
DX: F20.1 Disorganized schizophrenia (principal); N17.9 Acute kidney failure, unspecified; Z91.14 Patient's other noncompliance with medication regimen; E86.0 Dehydration; R41.89 Other symptoms and signs involving cognitive functions and awareness
CPT/HCPCS: 80048; 80053; 80061; 80307; 81001; 82306; 82607; 83036; 84443; 85025; 96372; J2060; Q0163